=== PATIENT | female | born 1995 | race Two or more races ===

== ENCOUNTER 2024-01-09 05:30 | Inpatient (IN) | payer OTHER ==
[2024-01-09 06:57] VITALS: BMI 26.9
[2024-01-09] MEDS: ELECTROLYTE-148 SOLN 1,000 ML IV SCH (08:00)
[2024-01-09 08:02] LABS: POTASSIUM 3.8 mmol/L (3.5-5.1)
[2024-01-09 08:03] LABS: BLOOD UREA NITROGEN 11.4 mg/dL (7-18); CALCIUM 8.7 mg/dL (8.5-10.1)
[2024-01-09 08:07] LABS: CREATININE 0.7 mg/dL (0.55-1.3)
[2024-01-09 08:29] LABS: BASO % 0.1 % (0-2.0); EOS % 0.6 % (0-4.5); HEMATOCRIT 32.1 % (32.4-45.2); HEMOGLOBIN 10.9 GM/dL (10.7-15.3); LYMPH % 19.9 % (8-40); MCH 30.2 pg (25.7-33.7); MCHC 34.1 g/dl (32.0-36.0); MEAN CELL VOLUME 88.7 fl (80-96); NEUT % 71.4 % (42.8-82.8); PLATELET COUNT 119 10^3/uL (134-434); RBC 3.62 M/mm3 (3.60-5.2); RDW 15.4 % (11.6-15.6); WHITE BLOOD COUNT 8.3 K/mm3 (4.0-10.0)
[2024-01-09 08:34] LABS: INR 0.94 (0.83-1.09); PROTHROMBIN TIME (PATIENT) 10.9 SEC (9.7-13.0)
[2024-01-09 08:37] LABS: ACTIVATED PTT 27.5 SECONDS (25.2-36.5)
[2024-01-09] MEDS ORDERED: OXYTOCIN 30 UNITS in 0.9% NS 30 UNIT/500 ML INFUS.BAG IVPB ONE (08:43)
[2024-01-09] MEDS ORDERED: ELECTROLYTE-148 SOLN 1,000 ML IV SCH (09:00)
[2024-01-09] MEDS: OXYTOCIN 30 UNITS in 0.9% NS 30 UNIT/500 ML INFUS.BAG IVPB SCH (09:00)
[2024-01-09 09:27] LABS: ALBUMIN 2.9 g/dl (3.4-5.0)
[2024-01-09 09:29] LABS: BILIRUBIN,DIRECT 0.1 mg/dL (0.0-0.2)
[2024-01-09 09:31] LABS: TOT PROT 6.5 g/dl (6.4-8.2)
[2024-01-09 09:32] LABS: BILIRUBIN,TOTAL 0.5 mg/dL (0.2-1)
[2024-01-09] MEDS ORDERED: FENTANYL/BUPIVACAINE/NS/PF - PCEA - 50 ML DISP.SYRIN EP ONE ×2 (13:23→18:06)
[2024-01-09] MEDS: FENTANYL/BUPIVACAINE/NS/PF - PCEA - 50 ML DISP.SYRIN EP SCH (14:00)
[2024-01-09] MEDS ORDERED: NALOXONE HCL 0.4 MG/ML VIAL IVPUSH PRN (14:22)
[2024-01-09] MEDS: PROMETHAZINE HCL 25 MG/1 ML VIAL IVPB ONE (14:45)
[2024-01-09] MEDS: BUTORPHANOL TARTRATE 2 MG/ML VIAL IVPUSH ONE (14:45)
[2024-01-09] MEDS ORDERED: BUPIVACAINE HCL/PF 0.25% (2.5MG/ML) 10 ML VIAL ONE ×2 (16:10→19:05)
[2024-01-09 19:21] LABS: EPI CELLS 15 /uL (0-25.1); HYALINE CASTS 1 /uL (0-3.1); URINE APPEARANCE CLEAR; URINE BACTERIA 40 /uL (0-1359); URINE BILIRUBIN NEGATIVE (NEGATIVE); URINE COLOR YELLOW; URINE GLUCOSE (UA) NEGATIVE (NEGATIVE); URINE KETONE 2+ (NEGATIVE); URINE LEUK ESTERASE NEGATIVE (NEGATIVE); URINE NITRITE NEGATIVE (NEGATIVE); URINE PROTEIN NEGATIVE (NEGATIVE); URINE RBC 37 /uL (0-23.9); URINE UROBILINOGEN 0.2 mg/dL (0.2-1.0); URINE WBC 7 /uL (0-25.8)
[2024-01-09] MEDS ORDERED: OXYTOCIN 20 UNITS in 0.9% NS 20 UNIT/1,000 ML INFUS.BAG IV ONE (19:32)
[2024-01-09] MEDS: OXYTOCIN 20 UNITS in 0.9% NS 20 UNIT/1,000 ML INFUS.BAG IV SCH (21:05)
[2024-01-09 21:38] LABS: CORD BASE EXCESS -10.7 mmol/L (0-2); CORD HCO3 20.1 mmHg (20-29); CORD PCO2 65.4 mmHg (30-78); CORD pH 7.106 (7.14-7.44)
[2024-01-09 21:39] LABS: CORD BASE EXCESS -8.9 mmol/L (0-2); CORD HCO3 19.6 mmHg (20-29); CORD PCO2 51.9 mmHg (30-78); CORD pH 7.195 (7.14-7.44)
[2024-01-09] MEDS ORDERED: oxyCODONE HCL 5 MG TABLET PO PRN (21:56)
[2024-01-09] MEDS ORDERED: BENZOCAINE 20% 57 GM BOTTLE TP PRN (21:56)
[2024-01-09] MEDS ORDERED: BISACODYL 10 MG SUPP.RECT RC PRN (21:56)
[2024-01-09] MEDS ORDERED: METHYLERGONOVINE MALEATE 0.2 MG/1 ML AMP IM PRN (21:56)
[2024-01-09] MEDS ORDERED: WITCH HAZEL 50% (TUCKS) 40 PAD/JAR PAD TP PRN (21:56)
[2024-01-09] MEDS ORDERED: BENZOCAINE 28 GM HEMORRHOIDAL OINTMENT TP PRN (21:56)
[2024-01-09] MEDS ORDERED: IBUPROFEN 600 MG TABLET (FP) PO ONE (22:24)
[2024-01-09] MEDS: IBUPROFEN 600 MG TABLET (FP) PO PRN (22:30)
[2024-01-10] MEDS: ACETAMINOPHEN 325 MG TABLET (FP) PO PRN (01:06)
[2024-01-10 07:31] LABS: HEMATOCRIT 28.6 % (32.4-45.2); HEMOGLOBIN 9.4 GM/dL (10.7-15.3); MCH 29.3 pg (25.7-33.7); MCHC 32.9 g/dl (32.0-36.0); MEAN CELL VOLUME 89.2 fl (80-96); MEAN PLT VOLUME 11.5 fl (7.5-11.1); PLATELET COUNT 115 10^3/uL (134-434); WHITE BLOOD COUNT 24.4 K/mm3 (4.0-10.0)
[2024-01-10 09:23] LABS: ANISOCYTOSIS 0; HELMET CELLS 0; HOWELL-JOLLY BODIES 0; MACROCYTOSIS 0; OVALOCYTE 0; ROULEAU 0; SICKELED CELLS 0; TARGET CELLS 0; TEAR DROP CELLS 0; TOXIC GRANULATION 0
[2024-01-10] MEDS: MEASLES,MUMPS&RUBELLA VACC/PF 0.5 ML VIAL SQ ONE (20:27)
[2024-01-10] MEDS ORDERED: SENNOSIDES/DOCUSATE COMBO (SENNA PLUS) TABLET (UD) PO PRN (22:00)
[2024-01-11 06:48] LABS: BASO % 0.1 % (0-2.0); EOS % 0.2 % (0-4.5); HEMOGLOBIN 9.1 GM/dL (10.7-15.3); MCH 29.8 pg (25.7-33.7); MCHC 33.6 g/dl (32.0-36.0); MEAN CELL VOLUME 88.7 fl (80-96); MEAN PLT VOLUME 10.5 fl (7.5-11.1); MONO % 6.5 % (3.8-10.2); NEUT % 81.2 % (42.8-82.8); PLATELET COUNT 132 10^3/uL (134-434); RBC 3.05 M/mm3 (3.60-5.2); RDW 15.6 % (11.6-15.6); WHITE BLOOD COUNT 18.2 K/mm3 (4.0-10.0)
[2024-01-11 19:24] VITALS: BP 128/88; PULSE 99; RESP 17; TEMP 98.2
== END 2024-01-11 19:52 | disposition home or self-care (01) | DRG 560 ==
LOC: JDEL 05:30 → JLDR 06:00 → J3W 23:41
PROVIDERS: ADMIT Family Medicine; ATTEND Family Medicine
PROC: 10E0XZZ Delivery of Products of Conception, External Approach (ICD-10-PCS; principal; 2024-01-09)
PROC: 0HQ9XZZ Repair Perineum Skin, External Approach (ICD-10-PCS; 2024-01-09)
PROC: 0W8NXZZ Division of Female Perineum, External Approach (ICD-10-PCS; 2024-01-09)
DX: O70.0 First degree perineal laceration during delivery (principal); Z3A.39 39 weeks gestation of pregnancy; Z37.0 Single live birth
CPT/HCPCS: 36415; 36600; 80048; 80076; 81003; 82803; 85025; 85610; 85730; 86762; 86850; 86900; 86901; 87340